=== PATIENT | female | born 1985 | race Caucasian/White ===

== ENCOUNTER 2018-05-20 21:04 | Emergency (ER) | END 2018-05-20 22:33 | disposition home or self-care (01) ==

== ENCOUNTER 2018-05-21 23:19 | Emergency (ER) | END 2018-05-22 02:40 | disposition home or self-care (01) ==

== ENCOUNTER 2018-06-16 00:05 | Emergency (ER) | END 2018-06-16 05:06 | disposition home or self-care (01) ==